=== PATIENT | male | born 1965 | race Caucasian/White ===

== ENCOUNTER 2020-09-02 07:49 | Day surgery (SDC) | payer BC ==
[2020-08-27 11:39] VITALS: BMI 29.2
[2020-09-02] MEDS ORDERED: DEXAMETHASONE SOD PHOSPHATE 10 MG/1 ML VIAL ONE (09:27)
[2020-09-02] MEDS ORDERED: MIDAZOLAM HCL 2 MG/2 ML SINGLE DOSE VIAL ONE (09:28)
[2020-09-02] MEDS ORDERED: ROPIVACAINE HCL 0.5% 30ML VIAL ONE (09:28)
[2020-09-02] MEDS ORDERED: PROPOFOL 20 ML ONE ×2 (10:12→12:14)
[2020-09-02] MEDS ORDERED: ceFAZolin SODIUM 1 GM VIAL ONE (10:23)
[2020-09-02] MEDS ORDERED: DEXAMETHASONE SOD PHOSPHATE 4 MG/1 ML VIAL ONE (10:29)
[2020-09-02] MEDS ORDERED: ONDANSETRON 4 MG/2 ML VIAL ONE ×3 (10:29→13:26)
[2020-09-02] MEDS ORDERED: TRANEXAMIC ACID 1000 MG/10 ML VIAL ONE (10:40)
[2020-09-02] MEDS ORDERED: MINERAL OIL 25 ML OIL ONE (10:44)
[2020-09-02] MEDS ORDERED: ONDANSETRON 4 MG/2 ML VIAL IVPUSH PRN (12:58)
[2020-09-02] MEDS ORDERED: oxyCODONE HCL 5 MG TABLET PO PRN (12:58)
[2020-09-02] MEDS ORDERED: LACTATED RINGERS SOLUTION 1,000 ML IV SCH (13:00)
[2020-09-02 14:54] VITALS: TEMP 98.2
[2020-09-02 14:58] VITALS: BP 102/64; PULSE 76
== END 2020-09-02 14:55 | disposition home or self-care (01) ==
LOC: FASU 07:49
PROVIDERS: ATTEND Orthopaedic Surgery Sports Medicine
PROC: 0RNJ4ZZ Release Right Shoulder Joint, Percutaneous Endoscopic Approach (ICD-10-PCS; 2020-09-02)
PROC: 0RBJ4ZZ Excision of Right Shoulder Joint, Percutaneous Endoscopic Approach (ICD-10-PCS; 2020-09-02)
PROC: 0LQ14ZZ Repair Right Shoulder Tendon, Percutaneous Endoscopic Approach (ICD-10-PCS; principal; 2020-09-02 10:38)
PROC: 0LS34ZZ Reposition Right Upper Arm Tendon, Percutaneous Endoscopic Approach (ICD-10-PCS; 2020-09-02 10:38)
DX: M75.121 Complete rotator cuff tear or rupture of right shoulder, not specified as traumatic (principal); M75.21 Bicipital tendinitis, right shoulder; M24.111 Other articular cartilage disorders, right shoulder
CPT/HCPCS: 94760; J1100